=== PATIENT | male | born 1975 | race Caucasian/White ===

== ENCOUNTER 2020-06-25 13:23 | Emergency (ER) | payer BC ==
[2020-06-25 13:43] VITALS: BP 141/67
--- NOTE | 2020-06-25 13:48 | ER Document Report ---
ED Extremity Problem, Lower - General Chief Complaint: Knee Pain Stated Complaint: KNEE PAIN - LEFT Time Seen by Provider: 06/25/20 13:43 Notes: CHIEF COMPLAINT: Left knee injury HPI: 45-year-old male presenting with a medial left knee injury that occurred while working out a week ago. Has had continued discomfort to the medial aspect of the knee. Does not recall specifically what he was doing when the knee was injured. No swelling of the knee. Has taken ibuprofen intermittently with only minimal resolution of the discomfort. Knee is most uncomfortable in the morning after resting. Hurts to walk. ROS: See HPI - all other systems were reviewed and are otherwise negative Constitutional: no fever Integumentary: no rash Allergy: no hives Musculoskeletal: + extremity pain or swelling Neurological: no numbness/tingling, no weakness MEDICATIONS: I agree with the patient medications as charted by the RN. ALLERGIES: I agree with the allergies as charted by the RN. PAST MEDICAL HISTORY/PAST SURGICAL HISTORY: Reviewed and agree as charted by RN. SOCIAL HISTORY: Reviewed and agree as charted by RN. FAMILY HISTORY: No significant familial comorbid conditions directly related to patient complaint EXAM: Reviewed vital signs as charted by RN. CONSTITUTIONAL: Alert and oriented and responds appropriately to questions. Well-appearing; well-nourished HEAD: Normocephalic; atraumatic EYES: Conjunctivae clear, sclerae non-icteric ENT: normal nose; no rhinorrhea; moist mucous membranes NECK: Supple without meningismus CARD: symmetric distal pulses RESP: Normal chest excursion without splinting or tachypnea ABD/GI: non-distended BACK: The back appears normal EXT: Normal ROM in all joints; mild tenderness on palpation of the medial aspect of the left knee; no cyanosis, no effusions, no edema. Negative anterior drawer sign no laxity on varus or valgus rotation of the left knee. Popliteal dorsalis pedis posterior tibial pulses are present in the left lower extremity. Sensation intact in the distal left lower extremity to touch with capillary refill less than 3 seconds SKIN: Normal color for age and race; warm; dry; good turgor; no acute lesions noted NEURO: Moves all extremities equally; Motor and sensory function intact PSYCH: The patient's mood and manner are appropriate. Grooming and personal hygiene are appropriate. MDM: 45-year-old male medial left knee injury. Will obtain x-ray for fracture if x-ray negative anticipate discharge home to follow-up with orthopedics for outpatient MRI or further evaluation - Related Data Allergies/Adverse Reactions: No Known Allergies Allergy (Unverified 06/25/20 13:40) Past Medical History - Social History Smoking Status: Unknown if Ever Smoked Family History: Reviewed & Not Pertinent Physical Exam - Vital signs Vitals: Temp Pulse Resp BP Pulse Ox 98.1 F 89 16 141/67 H 98 06/25/20 13:43 06/25/20 13:43 06/25/20 13:43 06/25/20 13:43 06/25/20 13:43 Course - Re-evaluation Re-evalutation: 06/25/20 14:25 X-ray imaging does not reveal definitive fracture will place on pain management orthopedic referral - Vital Signs Vital signs: Temp Pulse Resp BP Pulse Ox 98.1 F 89 16 141/67 H 98 06/25/20 13:43 06/25/20 13:43 06/25/20 13:43 06/25/20 13:43 06/25/20 13:43 Discharge - Discharge Clinical Impression: Left knee injury Qualifiers: Encounter type: initial encounter Qualified Code(s): S89.92XA - Unspecified injury of left lower leg, initial encounter Condition: Stable Disposition: HOME, SELF-CARE Additional Instructions: X-ray imaging did not reveal evidence of a fracture. Take the medications as prescribed no driving if taking narcotics for pain. Follow-up with orthopedics for further outpatient evaluation and management call for appointment Prescriptions: Hydrocodone/Acetaminophen [Randolph 5-325 mg Tablet] 1 tab PO Q4 PRN #10 tablet PRN Reason: Diclofenac Sodium [Voltaren 50 Mg Tablet.Dr] 50 mg PO BID #20 tablet. Referrals: RAÚL ROACH JR, [ACTIVE PROVISIONAL STAFF] - Follow up as needed
--- NOTE | 2020-06-25 14:18 | RADIOLOGY REPORT (SQ) ---
EXAM DESCRIPTION: KNEE LEFT 4 VIEW IMAGES COMPLETED DATE/TIME: 06/25/2020 1:00 pm REASON FOR STUDY: medial knee inj COMPARISON: None. NUMBER OF VIEWS: Four views. TECHNIQUE: AP, lateral, and both oblique radiographic images acquired of the left knee. LIMITATIONS: None. FINDINGS: MINERALIZATION: Normal. BONES: No acute fracture or dislocation. No worrisome bone lesions. JOINT: No effusion. SOFT TISSUES: No soft tissue swelling. No radio-opaque foreign body. OTHER: No other significant finding. IMPRESSION: NEGATIVE STUDY OF THE LEFT KNEE. NO RADIOGRAPHIC EVIDENCE OF ACUTE INJURY. TECHNICAL DOCUMENTATION: JOB ID: [id number] 2010 [employer]- All Rights Reserved Reading location - IP/workstation name: [email or web address]
== END 2020-06-25 14:45 | disposition home or self-care (01) ==
LOC: ER 13:23
DX: S89.92XA Unspecified injury of left lower leg, initial encounter (principal); M25.562 Pain in left knee; X58.XXXA Exposure to other specified factors, initial encounter; Y93.B9 Activity, other involving muscle strengthening exercises
CPT/HCPCS: 99283